=== PATIENT | male | born 2005 | race Caucasian/White ===

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

== ENCOUNTER 2024-06-21 12:02 | Emergency (ER) | payer MEDICAID ==
[~2024-06-21] VITALS: Ht 175.3 cm; Wt 59.1 kg
[2024-06-21] MEDS ORDERED: SULF1TAB49 PO (14:21)
[2024-06-21 15:10] VITALS: BP 114/78; PULSE 84; RESP 18; TEMP 98.6; O2SAT 99
== END 2024-06-21 15:12 | disposition home or self-care (01) ==
LOC: ER 12:03
DX: L03.012 Cellulitis of left finger (principal); L02.31 Cutaneous abscess of buttock; Z79.899 Other long term (current) drug therapy
CPT/HCPCS: 10060; 99283

== ENCOUNTER 2025-08-24 04:07 | Emergency (ER) | payer MEDICAID ==
[~2025-08-24] VITALS: Ht 180.3 cm; Wt 77.2 kg
--- NOTE | 2025-08-24 04:57 | Physician Documentation ---
History of Present Illness ~ Chief Complaint: See Chief Complaint Stated Complaint: DIZZY Time Seen by MD: 04:56 OK to notify your PCP?: Yes Primary Medical Doctor: None Source: patient, family, RN/MD, RN notes reviewed, old records Mode of Arrival: POV Exam Limitations: no limitations HPI This patient was cleaning with some comment and bleach and apparently inhaled some of that felt a little dizzy lightheaded at four as not feeling well got better but then later started having some difficulty breathing so he was concerned and came in for evaluation. Also patient is started feeling a bit dizzy as well which made him a bit more concerned. He has some general aches malaise on top of everything after he was cleaning so he was a bit worried. He is now here for evaluation and care. He is otherwise in good health has no other complaints. Medication Reconciliation Allergies: Coded Allergies: No Known Allergies (Unverified , 06/21/24) Past Medical History Past Medical History: No Pertinent History Past Surgical History: noncontributory Smoking Status: Current every day smoker Alcohol Use: None Drug Use: none Lives In: Home Review of Systems All Other Systems at this time: Reviewed and Negative Physical Exam Vital Signs: RN Vital Signs have been reviewed: Yes, Temperature: 98.2, Heart Rate: 87, Respiratory Rate: 16, BP: 112/61, Pulse Oximetry: 97, Weight: 77.200 Oxygen Flow Rate: 0 Physical Exam General: The patient is well developed, well nourished, nontoxic appearing and is in no acute distress. Skin: Babb, warm and dry with no rashes. HEENT: Head was normocephalic and atraumatic. Eyes - pupils equal, round, reactive to light and accommodation. Extraocular movements were intact. Conjunctivae were nonicteric. The mouth and oropharynx were clear with moist mucous membranes. There were no pharyngeal exudates or erythema. Neck: Supple and nontender. There was no jugular venous distention, lymphadenopathy, Chest: Clear to auscultation bilaterally without wheezes, rales or rhonchi. No accessory muscle use. Heart: Rate regular and rhythmic. S1, S2. No murmurs. Abdomen: Soft, nontender and nondistended. Positive bowel sounds. No guarding or rebound. Extremities: No cyanosis, clubbing or edema. The patient moves all extremities. Pulses were equal and symmetric. Neurologic: Motor sensory grossly intact Psychologic: The patient was oriented to person, place and time. The patient demonstrated appropriate judgement and insight. Progress Results/Orders Results/Orders Orders - SALOMON LI MD Svn Treatment (08/24/25 04:56) Ipratropium/Albuterol Nebule (Ipratrop/A (08/24/25 05:00) Vital Signs 08/24/25 04:14 Temp 98.2 Pulse 87 Resp 16 B/P (MAP) 112/61 Pulse Ox 97 O2 Flow Rate 0 Re-Evaluation Re-evaluation : Bronchodilator Tx Response: complete relief Re-Evaluation: Improved Progress Patient was seen and examined. Patient is given reassurance. Patient is having some breathing difficulties. However oxygenation was reassuring at 97% also respiratory rate has a calm 16 per minute. Patient received a neb treatment. Poison control was contacted which was only supportive care measures basically nothing to do. Neb treatment would help the patient breathes bit better we mentioned hot shower with the humidity to help him breathe tomorrow when he wakes up. Otherwise patient appears well oxygen as well lung sounds are clear he was then discharged home. Pulse oximetry monitor interpretation shows normal oxygenation 97% room air, nor mal, my interpretation. Medical Decision Making Additional info obtained from: old records Differential Dx:Considerations: Include: anxiety, bronchitis, COPD, pneumonitis, respiratory distress, sinusitis, upper resp. infection, other Departure Disposition: 01 HOME / SELF CARE / HOMELESS Impression: Primary Impression: Exposure to chemical inhalation Condition: Stable Discharge Instructions: Chemical Inhalation Injury, Adult Referrals: NO PRIMARY CARE PROVIDER (PCP) Education Educated: Patient, Family Educated regarding: diagnosis, need for follow up Signature Scribe Signature: . Attestation: The note accurately reflects work and decisions made by me.Salomon Li MD 08/24/25 04:57 SALOMON LI MD Aug 24, 2025 04:57
[2025-08-24] MEDS: ipratropium/albuterol 3ml nebule NEB ONE (05:06)
[2025-08-24 05:09] VITALS: PULSE 86; RESP 18; O2SAT 98
[2025-08-24 05:15] VITALS: PULSE 86; RESP 16; O2SAT 96
[2025-08-24 05:19] VITALS: BP 114/62; PULSE 92; RESP 16; TEMP 98.6; O2SAT 97
== END 2025-08-24 05:19 | disposition home or self-care (01) ==
LOC: ER 04:07
DX: Z77.098 Contact with and (suspected) exposure to other hazardous, chiefly nonmedicinal, chemicals (principal); R06.00 Dyspnea, unspecified; R42 Dizziness and giddiness; R53.81 Other malaise; F17.200 Nicotine dependence, unspecified, uncomplicated; Z79.899 Other long term (current) drug therapy
CPT/HCPCS: 94640; 94760; 99283